=== PATIENT | female | born 1990 | race Hispanic/Latino ===

== ENCOUNTER 2021-06-20 11:56 | Emergency (ER) | payer BC ==
[2021-06-20 13:29] LABS: Urine Blood Negative (Negative); Urine Glucose Negative (Negative); Urine Protein 1+ (Negative); Urine Specific Gravity >=1.030 (1.005-1.030); Urine pH 5.5 (5.0-7.0)
--- NOTE | 2021-06-20 14:00 | RAD REPORT ---
EXAM DESCRIPTION: CT - Chest For Pe Angio - 06/20/2021 1:46 pm CLINICAL HISTORY: Chest pain. CHEST PAIN COMPARISON: No comparisons TECHNIQUE: CT angiogram of the pulmonary arteries was performed with MIP. All CT scans are performed using dose optimization technique as appropriate and may include automated exposure control or mA/KV adjustment according to patient size. FINDINGS: No evidence of pulmonary thromboembolism. No acute aortic finding demonstrated. There is a moderate area of lung consolidation in the right lower lobe medially most compatible with pneumonia. A small is also present in the right middle lobe. No significant pericardial or pleural fluid. No concerning bony finding. IMPRESSION: No evidence of pulmonary thromboembolism. Moderate lung consolidation in the right lower lobe is seen most compatible with pneumonia. This may be superimposed on a mild viral bronchitis.
[2021-06-20 14:06] LABS: Absolute Lymphocytes (CBC) 1.5 K/uL (0.7-4.9); Basophils % 0.4 % (0-1.3); Hematocrit 36.5 % (36.0-45.0); Lymphocytes % 37.6 % (15.3-44.8); MPV 8.7 fL (7.6-11.3); RBC Red Blood Cell Count 5.52 M/uL (3.86-4.86)
[2021-06-20 14:16] LABS: Potassium 3.7 mmol/L (3.5-5.1)
[2021-06-20 14:20] LABS: Urine Specific Gravity/Preg >1.030 (1.005-1.030)
--- NOTE | 2021-06-20 14:31 | RAD REPORT ---
EXAM DESCRIPTION: RAD - Chest Single View - 06/20/2021 2:25 pm CLINICAL HISTORY: Cough;Dyspnea Chest pain. COMPARISON: No comparisons FINDINGS: Portable technique limits examination quality. Mild bilateral interstitial lung opacities are present likely representing a viral infection/ bronchi tis. Increased medial right lung base infiltrate is present likely superimposed developing pneumonia. The heart is normal in size. No displaced fractures.
[2021-06-20 14:57] LABS: White Blood Cell Scan OK (OK)
[2021-06-20 14:58] LABS: Anisocytosis 1+; Blood Morphology Comment NOTED (NOT SEEN); Hypochromasia 1+; Platelet Estimate ADEQ
[2021-06-20] MEDS ORDERED: CEFTRIAXONE/SWI 1gm 1 GM/10 ML SYR ONE (16:03)
[2021-06-20 16:32] LABS: SARS-COV-2 RT PCR POSITIVE (NEGATIVE)
--- NOTE | 2021-06-20 16:38 | ER ---
[facility] Name: Lynnette Potts Age: 30 yrs Sex: Female : 1990 Arrival Date: 06/20/2021 Time: 11:58 Bed DX2 Private MD: Diagnosis: Coronavirus infection, unspecified;Pneumonia due to SARS-associated coronavirus Presentation: 06/20 12:49 Chief complaint: Patient states: SOB and dizzy for 4 days. Sent in by PCP for eval. C. ll1 Pb, sent her in for eval. Ebola Screen: Patient denies travel to an Ebola-affected area in the 21 days before illness onset. Initial Sepsis Screen: Does the patient meet any 2 criteria? HR > 90 bpm. No. Patient's initial sepsis screen is negative. Does the patient have a suspected source of infection? Yes: Productive cough/pneumonia. 12:49 Method Of Arrival: Ambulatory ll1 12:52 Coronavirus screen: Vaccine status: Patient reports being unvaccinated. cough unrelated ll1 to allergies, difficulty breathing, fever, runny nose, Client presents with at least one sign or symptom that may indicate coronavirus-19. Standard/surgical mask placed on the client. Risk Assessment: Do you want to hurt yourself or someone else? Patient reports no desire to harm self or others. Onset of symptoms was June 15, 2021. 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 Flu vaccine status is unknown. - Social history:: Smoking status: Patient denies any tobacco usage or history of. Screenin:41 Abuse screen: Denies threats or abuse. Denies injuries from another. Nutritional kg screening: No deficits noted. Tuberculosis screening: No symptoms or risk factors identified. Fall Risk None identified. Assessment: 16:43 Respiratory: Airway is patent Respiratory effort is even, unlabored, relaxed, Breath kg sounds are diminished bilaterally. Vital Signs: 12:49 BP 136 / 89; Pulse 96; Resp 22; Temp 99.4; Pulse Ox 100% ; Weight 138.8 kg; Height 5 ll1 ft. 6 in. (167.64 cm); Pain 5/10; 16:40 BP 141 / 76; Pulse 97; Resp 20; Pulse Ox 98% ; kg 12:49 Body Mass Index 49.39 (138.80 kg, 167.64 cm) ll1 ED Course: 11:58 Patient arrived in ED. as 12:49 Arm band placed on. ll1 12:52 [facility] kb 12:52 Bruno Galvan MD is Attending Physician. kb 12:54 Triage completed. ll1 13:46 CT Chest For PE Angio In Process Unspecified. EDMS 14:25 Chest Single View XRAY In Process Unspecified. EDMS 15:17 Marylin Swartz, MJ is Primary Nurse. ss 16:41 Patient has correct armband on for positive identification. kg 16:41 No provider procedures requiring assistance completed. IV discontinued, intact, kg bleeding controlled, No redness/swelling at site. Pressure dressing applied. Administered Medications: 15:50 Drug: Rocephin (cefTRIAXone) 1 grams Route: IV; Rate: calculated rate; Site: left kg antecubital; 16:00 Follow up: IV Status: Completed infusion; IV Intake: 10ml kg 16:44 Follow up: Response: No adverse reaction kg Intake: 16:00 IV: 10ml; Total: 10ml. kg Outcome: 16:37 Discharge ordered by MD. kb 16:41 Discharged to home ambulatory. kg 16:41 Condition: good 16:41 Discharge instructions given to patient, Instructed on discharge instructions, follow up and referral plans. Demonstrated understanding of instructions, follow-up care, medications, Prescriptions given X 16:43 Patient left the ED. kg Signatures: Dispatcher [employer] EDMS Lori Abdul FNP-C [employer] REPAIR SUPERVISOR-Evonne Carvalho as Marylin Swartz, MJ BARKER Saeed Gonzales RN RN ll1 Nora Garcia RN RN kg Corrections: (The following items were deleted from the chart) 12:54 12:49 Chief complaint: Patient states: SOB and dizzy for a couple weeks. Sent in by PCP ll1 for eval. ll1
--- NOTE | 2021-06-20 16:38 | EDPHYS ---
Physician Documentation [facility] Name: Lynnette Potts Age: 30 yrs Sex: Female : 1990 Arrival Date: 06/20/2021 Time: 11:58 Bed DX2 Private MD: ED Physician Bruno Galvan HPI: 06/20 13:03 This 30 yrs old Female presents to ER via Ambulatory with complaints of kb Shortness Of Breath. 13:03 The patient has shortness of breath at rest. Onset: The symptoms/episode began/occurred kb 4 day(s) ago. Duration: The symptoms are continuous. The patient's shortness of breath is aggravated by exertion. Associated signs and symptoms: Pertinent positives: non-productive cough, pain with deep breath. Severity of symptoms: At their worst the symptoms were moderate in the emergency department the symptoms are unchanged. The patient has not experienced similar symptoms in the past. The patient has not recently seen a physician. 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 Flu vaccine status is unknown. - Social history:: Smoking status: Patient denies any tobacco usage or history of. ROS: 13:02 Constitutional: Negative for fever, chills, and weight loss. kb 13:02 Respiratory: Positive for cough, pleurisy, shortness of breath, Negative for dyspnea on exertion, hemoptysis, orthopnea, sputum production, wheezing. 13:02 All other systems are negative. 13:03 Constitutional: Positive for fatigue. kb Exam: 13:02 Constitutional: This is a well developed, well nourished patient who is awake, alert, kb and in no acute distress. Head/Face: Normocephalic, atraumatic. ENT: Moist Mucous membranes Cardiovascular: Regular rate and rhythm with a normal S1 and S2. No gallops, murmurs, or rubs. No pulse deficits. Respiratory: Respirations even and unlabored. No increased work of breathing, no retractions or nasal flaring. Skin: Warm, dry with normal turgor. Normal color. MS/ Extremity: Pulses equal, no cyanosis. Neurovascular intact. Full, normal range of motion. Neuro: Awake and alert, GCS 15, oriented to person, place, time, and situation. Moves all extremities. Normal gait. Psych: Awake, alert, with orientation to person, place and time. Behavior, mood, and affect are within normal limits. Vital Signs: 12:49 BP 136 / 89; Pulse 96; Resp 22; Temp 99.4; Pulse Ox 100% ; Weight 138.8 kg; Height 5 ll1 ft. 6 in. (167.64 cm); Pain 5/10; 16:40 BP 141 / 76; Pulse 97; Resp 20; Pulse Ox 98% ; kg 12:49 Body Mass Index 49.39 (138.80 kg, 167.64 cm) ll1 MDM: 12:52 Patient medically screened. kb 13:02 Data reviewed: vital signs, nurses notes. Data interpreted: Pulse oximetry: on room air kb is 100 %. Interpretation: normal. 16:36 Counseling: I had a detailed discussion with the patient and/or guardian regarding: the kb historical points, exam findings, and any diagnostic results supporting the discharge/admit diagnosis, lab results, radiology results, the need for outpatient follow up, a family practitioner, to return to the emergency department if symptoms worsen or persist or if there are any questions or concerns that arise at home. 06/20 12:54 Order name: Flu kb 06/20 12:54 Order name: CBC with Diff; Complete Time: 15:01 kb 06/20 12:54 Order name: Basic Metabolic Panel; Complete Time: 14:16 kb 06/20 13:29 Order name: Urine Dipstick-Ancillary; Complete Time: 13:31 EDMS 06/20 13:33 Order name: Urine --Ancillary (enter results); Complete Time: 14:23 ss 06/20 12:54 Order name: IV Start; Complete Time: 15:17 kb 06/20 12:54 Order name: CT Chest For PE Angio; Complete Time: 14:06 kb 06/20 14:06 Order name: Chest Single View XRAY; Complete Time: 14:33 kb 06/20 14:10 Order name: CBC Smear Scan; Complete Time: 15:01 EDMS 06/20 16:33 Order name: COVID-19/FLU A+B; Complete Time: 16:33 EDMS Administered Medications: 15:50 Drug: Rocephin (cefTRIAXone) 1 grams Route: IV; Rate: calculated rate; Site: left kg antecubital; 16:00 Follow up: IV Status: Completed infusion; IV Intake: 10ml kg 16:44 Follow up: Response: No adverse reaction kg Disposition: 06/21 08:43 Co-signature as Attending Physician, Bruno Galvan MD I agree with the assessment and sade plan of care. Disposition Summary: 06/20/21 16:37 Discharge Ordered Location: Home kb Condition: Stable kb Diagnosis - Coronavirus infection, unspecified kb - Pneumonia due to SARS-associated coronavirus kb Followup: kb - With: Private Physician - When: 2 - 3 days - Reason: Recheck today's complaints, Continuance of care, Re-evaluation by your physician Followup: kb - With: Emergency Department - When: As needed - Reason: Worsening of condition Discharge Instructions: - Discharge Summary Sheet kb - Viral Respiratory Infection, [id number] kb - COVID-19 kb - COVID-19 Frequently Asked Questions kb - 10 Things You Can Do to Manage Your COVID-19 Symptoms at Home - [facility] kb Forms: - Medication Reconciliation Form kb - Thank You Letter kb - Antibiotic Education kb - Prescription Opioid Use kb Prescriptions: - Zithromax 500 mg Oral Tablet - take 1 tablet by ORAL route once daily for 5 days; 5 tablet; Refills: 0, kb Product Selection Permitted Signatures: Dispatcher [employer] EDLori Chaparro, STATION COOK-C STATION COOK-Bruno Katz MD MD cha Lewis, Lynsay, RN RN ll1 Nora Garcia RN RN kg Corrections: (The following items were deleted from the chart) 06/20 15:00 12:54 CORONAVIRUS+.BRZ ordered. EDOR EDMS
[2021-06-20 16:48] VITALS: TEMP 99.4
[2021-06-20 16:49] VITALS: BP 141/76; O2SAT 98
== END 2021-06-20 16:43 | disposition home or self-care (01) ==
LOC: ER 11:56
DX: U07.1 COVID-19 (principal); J12.82 Pneumonia due to coronavirus disease 2019; I10 Essential (primary) hypertension; Z88.2 Allergy status to sulfonamides; Z88.6 Allergy status to analgesic agent; Z88.8 Allergy status to other drugs, medicaments and biological substances
CPT/HCPCS: 85025; 80048; 36415; 81025; 81003; 0240U; 71275; 71045; 96374; 99283; Q9967; J0696